=== PATIENT | male | born 1970 | race Caucasian/White ===

== ENCOUNTER 2017-07-13 13:45 | Emergency (ER) | payer BC ==
[~2017-07-13] VITALS: Ht 175.3 cm; Wt 70.5 kg
[2017-07-13 14:58] LABS: HEMATOCRIT 45.8 % (38.0-50.0); HEMOGLOBIN 15.6 G/DL (12.5-16.6); MCHC 34.1 G/DL (30.0-36.0); MCV 88.1 FL (86-99); PLATELET COUNT 185 K/uL (156-360); RBC DIS.WIDTH-CV 12.2 % (11.8-14.6); RBC DIS.WIDTH-SD 39.4 % (39-53); WHITE BLOOD COUNT 5.2 K/uL (4.1-10.2)
[2017-07-13 15:05] LABS: ALBUMIN 4.5 g/dL (3.2-4.8)
[2017-07-13 15:06] LABS: CHLORIDE 107 mEq/L (99-109); POTASSIUM 4.5 mEq/L (3.7-5.4); SODIUM 143 mEq/L (136-147)
[2017-07-13 15:08] LABS: GLUCOSE 94 mg/dL (70-99); TOTAL PROTEIN 7.4 g/dL (6.4-8.3)
[2017-07-13 15:10] LABS: TOTAL BILIRUBIN 0.6 mg/dL (0.0-1.0)
[2017-07-13 15:11] LABS: ALKALINE PHOSPHATASE 66 IU/L (3-129)
[2017-07-13 15:12] LABS: CREATININE 0.8 mg/dL (0.6-1.3); GFR ESTIMATE (CALCULATED) > 59 mL/min/ (58.99-99999)
[2017-07-13 15:13] LABS: AST (GOT) 24 IU/L (2-34); UREA NITROGEN (BUN) 13 mg/dL (9-23)
[2017-07-13 15:14] LABS: ALT (GPT) 39 IU/L (3-49)
[2017-07-13 15:18] LABS: TROP-I INTERPRETATION NEGATIVE; TROPONIN-I < 0.01 ng/mL (0.0-0.30)
[2017-07-13 18:16] LABS: TROP-I INTERPRETATION NEGATIVE; TROPONIN-I < 0.01 ng/mL (0.0-0.30)
[2017-07-13] MEDS ORDERED: ASPIRIN81 M2 PO (18:59)
[2017-07-13 19:13] VITALS: BP 112/56
== END 2017-07-13 19:14 | disposition home or self-care (01) ==
LOC: EME 13:45
PROVIDERS: Emergency Medicine
DX: R07.9 Chest pain, unspecified (principal); I51.7 Cardiomegaly; R00.1 Bradycardia, unspecified
CPT/HCPCS: 71045; 80053; 84484; 85027; 93005; 99281; 99285